=== PATIENT | female | born 1950 | race Caucasian/White ===

== ENCOUNTER → 2023-03-03 | Day surgery (SDC) | payer MEDICARE, OTHER ==
[~2023-03-03] MED LIST: Lidocaine 1% PF 5 ML VIAL ONE; Sodium Bicarbonate 2.5 MEQ/5 ML VIAL ONE
== END ==
LOC: CSHRAD 08:51
PROVIDERS: ATTEND Specialist
DX: M54.16 Radiculopathy, lumbar region (principal)
CPT/HCPCS: 72100